=== PATIENT | male | born 1930 | race African-American/Black ===

== ENCOUNTER 2017-03-11 01:08 | Emergency (ER) | payer OTHER ==
[~2017-03-11] VITALS: Ht 188 cm; Wt 91.0 kg
[2017-03-11] MEDS ORDERED: ONDANSETRON HCL 4MG/2ML VIAL IV STA (02:03)
[2017-03-11 02:06] VITALS: BP 164/95
[2017-03-11] MEDS ORDERED: MECLIZINE 25MG TABLET PO ONE (02:15)
== END 2017-03-11 02:30 | disposition left against medical advice (07) ==
LOC: ER 01:08
DX: I16.0 Hypertensive urgency (principal); E11.9 Type 2 diabetes mellitus without complications
CPT/HCPCS: 99283